=== PATIENT | female | born 1970 | race Caucasian/White ===

== ENCOUNTER 2016-03-19 | Outpatient (CLI) | END 2016-03-19 00:12 | disposition short-term general hospital (02) | CPT/HCPCS: A0425; A0433 ==

== ENCOUNTER 2016-09-09 18:18 | Emergency (ER) | payer MEDICARE ==
[2016-09-09 19:00] LABS: BASOPHILS % (AUTO) 0.2 %; HCT - HEMATOCRIT 43.2 % (37.0-47.0); HGB - HEMOGLOBIN 14.7 g/dL (12.0-16.0); LYMPHOCYTES # (AUTO) 1.3 10^3/uL (1.5-3.5); LYMPHOCYTES % (AUTO) 10.5 %; MEAN CORPUSCULAR HEMOGLOBIN 30.1 pg (27.0-31.0); MEAN CORPUSCULAR HGB CONC 34.1 g/dL (32.0-36.0); MEAN CORPUSCULAR VOLUME 88.1 fL (81.0-99.0); MEAN PLATELET VOLUME 9.4 fL (7.9-10.8); MONOCYTES # (AUTO) 0.9 10^3/uL (0.0-1.0); MONOCYTES % (AUTO) 7.1 %; NEUTROPHILS % (AUTO) 82.2 %; NUCLEATED RED BLOOD CELLS AUTO 0.1 /100WBC; RED CELL DISTRIBUTION WIDTH 13.1 % (12.0-15.0); UNCORRECTED WHITE BLOOD COUNT 12.2 x10^3/uL; WHITE BLOOD COUNT 12.2 x10^3/uL (4.8-10.8)
[2016-09-09 19:10] LABS: INR 1.3 (0.8-1.2); PT - PROTHROMBIN TIME 15.2 secs (9.9-12.6)
[2016-09-09] MEDS ORDERED: ACETYLCYSTEINE IV STA (19:48)
[2016-09-09] MEDS ORDERED: DEXTROSE 5% IV STA (19:48)
--- NOTE | 2016-09-09 19:48 | ED Physician Documentation ---
PD HPI MHE - Stated complaint Stated Complaint: OVERDOSE ASPRIN - Chief complaint Chief Complaint: Abd Pain - History obtained from History obtained from: Patient, Family - History of Present Illness Primary symptom: Suicide attempt Timing - onset: How many hours ago (19) Pain level max: 0 Pain level now: 0 Contributing factors: Family, Sig other Similar symptoms before: Diagnosis (schizophrenia) Recently seen: Not recently seen - Additional information Additional information: took 100 tabs of 500mg acetaminophen at midnight. did not tell her family until this afternoon. Now vomiting. Review of Systems Ten Systems: 10 systems reviewed and negative Constitutional: denies: Fever Nose: denies: Rhinorrhea / runny nose, Congestion Throat: denies: Sore throat Cardiac: denies: Chest pain / pressure Respiratory: denies: Cough GI: reports: Nausea, Vomiting. denies: Abdominal Pain, Diarrhea : denies: Dysuria, Now EGA Skin: denies: Rash Musculoskeletal: denies: Neck pain, Back pain Neurologic: denies: Headache PD PAST MEDICAL HISTORY - Past Medical History Past Medical History: Yes Cardiovascular: None Respiratory: None Neuro: None Endocrine/Autoimmune: None GI: None APPLICATION SECURITY ARCHITECT: None : None HEENT: None Psych: Schizophrenia Musculoskeletal: None Derm: None Other Past Medical History: Suicide attempt 09/08/16 - Past Surgical History Past Surgical History: No - Present Medications Home Medications: Ambulatory Orders Medication Instructions Recorded Confirmed traZODone [Desyrel] 50 mg ORAL DAILY 05/09/16 09/09/16 - Allergies Allergies/Adverse Reactions: Allergies Allergy/AdvReac Type Severity Reaction Status Date / Time No Known Drug Allergies Allergy Verified 05/09/16 15:48 - Social History Does the pt smoke?: No Smoking Status: Never smoker Does the pt drink ETOH?: No Does the pt have substance abuse?: No PD ED PE NORMAL - Vitals Vital signs reviewed: Yes - General General: Alert and oriented X 3, No acute distress - HEENT HEENT: PERRL, Moist mucous membranes - Neck Neck: Supple, no meningeal sign - Cardiac Cardiac: RRR - Respiratory Respiratory: No respiratory distress, Clear bilaterally - Abdomen Abdomen: Soft, Non tender - Derm Derm: Warm and dry, No rash - Extremities Extremities: No calf tenderness / cord - Neuro Neuro: Alert and oriented X 3 - Psych Psych: Normal mood, Normal affect Results - Vitals Vitals: Vital Signs - 24 hr 06/26/17 06/26/17 06/26/17 18:22 18:42 20:22 Temperature 36.7 C 36.8 C Heart Rate 103 H 94 Respiratory 14 18 26 H Rate Blood Pressure 151/81 H 120/48 L O2 Saturation 100 88 L 09/09/16 09/09/16 21:33 23:06 Temperature 36.9 C Heart Rate 94 99 Respiratory 17 19 Rate Blood Pressure 140/71 H 138/73 H O2 Saturation 100 98 Oxygen O2 Source Room air - EKG (time done) 2003 Rate: Rate (enter#) (90) Rhythm: NSR Burke: Normal Intervals: Prolonged QT Ischemia: Non specific changes - Labs Labs: Laboratory Tests 09/09/16 09/09/16 09/09/16 18:46 18:46 18:46 WBC 12.2 H RBC 4.90 Hgb 14.7 Hct 43.2 MCV 88.1 MCH 30.1 MCHC 34.1 RDW 13.1 Plt Count 249 MPV 9.4 Neut # 10.0 H Lymph # 1.3 L [place] # 0.9 Eos # 0.0 Baso # 0.0 Absolute Nucleated RBC 0.01 Nucleated RBCs 0.1 PT 15.2 H INR 1.3 H APTT 23.7 L Sodium Potassium Chloride Carbon Dioxide Anion Gap BUN Creatinine Estimated GFR (MDRD) Glucose Calcium Total Bilirubin AST ALT Alkaline Phosphatase Total Protein Albumin Globulin Albumin/Globulin Ratio Lipase Urine Color Urine Clarity Urine pH Ur Specific [place] Urine Protein Urine Glucose (UA) Urine Ketones Urine Occult Blood Urine Nitrite Urine Bilirubin Urine Urobilinogen Ur Leukocyte Esterase Urine RBC Urine WBC Ur Squamous Epith Cells Urine Bacteria Ur Microscopic Review Urine Culture Comments Urine HCG, Qual Salicylates Urine Opiates Screen Ur Oxycodone Screen Urine Methadone Screen Ur Propoxyphene Screen Acetaminophen Ur Barbiturates Screen Ur Tricyclics Screen Ur Phencyclidine Scrn Ur Amphetamine Screen U Methamphetamines Scrn U Benzodiazepines Scrn Urine Cocaine Screen U Cannabinoids Screen Ethyl Alcohol 09/09/16 09/09/16 09/09/16 19:43 20:35 20:35 WBC RBC Hgb Hct MCV MCH MCHC RDW Plt Count MPV Neut # Lymph # [place] # Eos # Baso # Absolute Nucleated RBC Nucleated RBCs PT INR APTT Sodium 136 Potassium 3.3 L Chloride 102 Carbon Dioxide 17 L Anion Gap 17.0 H BUN 9 Creatinine 0.7 Estimated GFR (MDRD) 90 Glucose 104 H Calcium 9.4 Total Bilirubin 2.3 H AST 295 H ALT 330 H Alkaline Phosphatase 87 Total Protein 8.4 H Albumin 4.5 Globulin 3.9 Albumin/Globulin Ratio 1.2 Lipase 29 Urine Color YELLOW Urine Clarity HAZY Urine pH 5.0 Ur Specific [place] 1.025 Urine Protein 30 H Urine Glucose (UA) NEGATIVE Urine Ketones 15 H Urine Occult Blood NEGATIVE Urine Nitrite NEGATIVE Urine Bilirubin NEGATIVE Urine Urobilinogen 0.2 (NORMAL) Ur Leukocyte Esterase NEGATIVE Urine RBC 0-5 Urine WBC 0-3 Ur Squamous Epith Cells FEW Squamous Urine Bacteria Rare Ur Microscopic Review INDICATED Urine Culture Comments NOT INDICATED Urine HCG, Qual NEGATIVE Salicylates < 6.0 Urine Opiates Screen NEGATIVE Ur Oxycodone Screen NEGATIVE Urine Methadone Screen NEGATIVE Ur Propoxyphene Screen NEGATIVE Acetaminophen 126 H* Ur Barbiturates Screen NEGATIVE Ur Tricyclics Screen NEGATIVE Ur Phencyclidine Scrn NEGATIVE Ur Amphetamine Screen NEGATIVE U Methamphetamines Scrn NEGATIVE U Benzodiazepines Scrn POSITIVE H Urine Cocaine Screen NEGATIVE U Cannabinoids Screen NEGATIVE Ethyl Alcohol < 5.0 PD MEDICAL DECISION MAKING - ED course Complexity details: reviewed results, re-evaluated patient, considered differential, d/w patient, d/w family ED course: 2099 [place] [facility] [place] [facility] [place] beds available. 2114 - No beds at [facility]. VM evaluating. 2139 - D/w EPRO from [facility] and will work on a bed. 2249 - Dr. Demetrio Blackman (ICU at [facility]) graciously accepts in transfer. Patient is a 46-year-old female who presents following a significant acetaminophen overdose last night. Has nausea and vomiting here. Mild elevation of her liver function tests, but significant elevation of her acetaminophen level 20 hours postingestion. Started on the 20 hour N- acetylcysteine IV protocol. Given IV fluids. Her QT is mildly prolonged and therefore Phenergan was used for nausea. She is stable in the emergency department. Will be transferred to [facility] in [place] for further evaluation and care. This document was made in part using voice recognition software. While efforts are made to proofread this document, sound alike and grammatical errors may occur. Departure - Departure Disposition: 02 Transfer Acute Care Hosp Clinical Impression: Suicide attempt by acetaminophen overdose Qualifiers: Encounter type: initial encounter Qualified Code(s): T39.1X2A - Poisoning by 4- Aminophenol derivatives, intentional self-harm, initial encounter Acetaminophen overdose Qualifiers: Encounter type: initial encounter Injury intent: intentional self-harm Qualified Code(s): T39.1X2A - Poisoning by 4-Aminophenol derivatives, intentional self-harm, initial encounter Condition: Stable Discharge Date/Time: 09/09/16 23:40
[2016-09-09] MEDS ORDERED: SODIUM CHLORIDE 0.9% 1,000 ML IV ONE ×2 (19:49→21:40)
[2016-09-09] MEDS ORDERED: ACETYLCYSTEINE 3,000 MG in DEXTROSE 5% 500 ML IV ONE (19:58)
[2016-09-09] MEDS ORDERED: ONDANSETRON 4 MG/2 ML VIAL IVP STA (20:36)
[2016-09-09] MEDS ORDERED: ONDANSETRON 4 MG/2 ML VIAL ONE (20:37)
[2016-09-09 20:54] LABS: ACETAMINOPHEN 126 ug/mL (10-30); ALBUMIN/GLOBULIN RATIO 1.2 (1.0-2.2); BILIRUBIN,TOTAL 2.3 mg/dL (0.2-1.0); BUN - BLOOD UREA NITROGEN 9 mg/dL (6-20); CALCIUM 9.4 mg/dL (8.5-10.3); CARBON DIOXIDE - CO2 17 mmol/L (21-32); CHLORIDE 102 mmol/L (101-111); CREATININE 0.7 mg/dL (0.4-1.0); GFR - MDRD 90 (>89); GLUCOSE 104 mg/dL (70-100); LIPASE 29 U/L (22-51); POTASSIUM 3.3 mmol/L (3.5-5.0); SALICYLATE < 6.0 mg/dL; SODIUM 136 mmol/L (135-145); TOTAL PROTEIN 8.4 g/dL (6.7-8.2)
[2016-09-09 21:08] LABS: BILIRUBIN,URINE NEGATIVE (NEGATIVE)
[2016-09-09 21:12] LABS: UA w/ MICROSCOPIC CHARGE YES
[2016-09-09 21:13] LABS: HCG UR QUAL NEGATIVE
[2016-09-09 21:22] LABS: UR CULTURE IF IND NOT INDICATED; WBC,URINE 0-3 /HPF (0-5)
[2016-09-09] MEDS ORDERED: PROMETHAZINE INJ 12.5 MG in SODIUM CHLORIDE 0.9% 50 ML IV STA (22:17)
[2016-09-09] MEDS ORDERED: DEXTROSE 5% IV ONE (22:28)
[2016-09-09] MEDS ORDERED: ACETYLCYSTEINE IV ONE (22:28)
[2016-09-09] MEDS ORDERED: SODIUM CHLORIDE 0.9% 50 ML IV ONE (22:35)
[2016-09-09] MEDS ORDERED: PROMETHAZINE 25 MG/1 ML VIAL ONE (22:35)
[2016-09-09 23:07] VITALS: BP 138/73
== END 2016-09-09 23:40 | disposition short-term general hospital (02) ==
LOC: ED 18:18
DX: T39.1X2A Poisoning by 4-Aminophenol derivatives, intentional self-harm, initial encounter (principal); R11.2 Nausea with vomiting, unspecified; I45.81 Long QT syndrome
CPT/HCPCS: 36415; 80053; 80306; 80307; 81001; 81025; 83690; 85025; 85610; 85730; 93005; 96365; 96366; 96368; 96375; 99284; 99285; G0480; J0132; J7040; 80320; 80329; 81003; 87086

== ENCOUNTER 2016-09-09 23:32 | Outpatient (CLI) | payer MEDICARE | END 2016-09-09 23:33 | disposition short-term general hospital (02) | LOC: EMS 23:32 | PROVIDERS: ATTEND Surgery | DX: T39.1X2A Poisoning by 4-Aminophenol derivatives, intentional self-harm, initial encounter (principal) | CPT/HCPCS: A0170; A0425; A0426 ==